=== PATIENT | female | born 1940 | race Caucasian/White ===

== ENCOUNTER 2022-07-30 15:13 | Emergency (ER) | payer MEDICARE, MEDICAID, SELFPAY ==
--- NOTE | ~2022-07-30 | CT_ITS ---
EXAMINATION: CT brain wo con DATE: 07/30/2022 18:17 INDICATION: minor head injury . TECHNIQUE: Computed tomography (CT) of the head was performed without intravenous contrast. The mA wa s adjusted according to patient size. Iterative reconstruction technique was employed. The dose-lengt h product was 1286.33 mGy-cm. COMPARISON: None FINDINGS: Motion limited examination. No acute intracranial hemorrhage or extra-axial fluid collection. No hydrocephalus, mass, or herniation. No acute ischemic infarct. Unremarkable dural venous sinus attenuation. No acute osseous abnormality. Left frontal and midline frontal scalp swelling. The aerated spaces are clear. Severe atrophy. Mild chronic white matter change. Atherosclerotic intracranial calcifications. IMPRESSION: Motion limited examination. Within that constraint, no definite acute intracranial process. Reviewed, dictated and finalized at location K. IMPRESSION: Motion limited examination. Within that constraint, no definite acute intracran ial process.
[2022-07-30 15:34] VITALS: BP 113/88; PULSE 83; RESP 19; O2SAT 100
--- NOTE | 2022-07-30 16:07 | PC.NURSE ---
TO CT scan
[2022-07-30 17:15] VITALS: PULSE 65; RESP 15; O2SAT 100
[2022-07-30] MEDS: LORazepam INJ (*CRX) 2 MG/ML VIAL 0.5 MG IV PUSH (18:10)
[2022-07-30 18:30] VITALS: BP 129/77; RESP 12; O2SAT 98
--- NOTE | 2022-07-30 18:45 | ED.GENADULT ---
HPI - General Adult General Chief complaint: Fall Stated complaint: fall from wheelchair Time Seen by Provider: 07/30/22 15:27 History of Present Illness HPI narrative: Patient is an 81-year-old female who presents ER after a fall from wheelchair. She struck her head on the ground and has a contusion to her left forehead. She is on baby aspirin. Patient has bad dementia and is not cooperative. She will attempt to bite. Related Data Home Medications Medication Instructions Recorded Confirmed Depakote 07/30/22 amlodipine 5 mg tablet mg 07/30/22 aspirin 81 mg tablet mg PO 07/30/22 buspirone 5 mg tablet mg 07/30/22 lisinopril 5 mg tablet mg 07/30/22 metoprolol tartrate 25 mg tablet mg 07/30/22 Allergies Allergy/AdvReac Type Severity Reaction Status Date / Time erythromycin base Allergy Unknown Verified 07/30/22 15:45 febuxostat [From Uloric] Allergy Unknown Verified 07/30/22 15:45 iodine Allergy Unknown Verified 07/30/22 15:45 morphine Allergy Unknown Verified 07/30/22 15:45 prednisone Allergy Unknown Verified 07/30/22 15:45 Review of Systems Review of Systems: ROS unobtainable: Yes unobtainable due to mental status PMFSH Past Medical History Medical History (Updated 07/30/22 @ 18:58 by Oral Vo MD) Dementia Hypertension Surgical History Surgical History (Updated 07/30/22 @ 18:58 by Oral Vo MD) Surgical history unknown Exam Narrative: GENERAL: Chronically ill-appearing, well-nourished, and in no acute distress. HEAD: Normocephalic, contusion left forehead. EYES: PERRL and EOMI. Neck: Supple. CHEST: Clear to auscultation. No respiratory distress. HEART: Regular rate and rhythm. Normal peripheral pulses. EXTREMITIES: Normal range of motion. No edema. SKIN: Warm, dry, no rash. NEURO: Awake and alert, not oriented. Course Course Emergency Course: Updated patient's daughter Cindy regarding results. [place] unlikely any bleeding despite motion limited scan. Patient DNR. Family comfortable with discharge back to facility. Vital Signs Vital signs: Vital Signs Pulse Rate 83 07/30/22 15:34 Respiratory Rate 19 07/30/22 15:34 Blood Pressure 113/88 07/30/22 15:34 Pulse Oximetry 100 07/30/22 15:34 Oxygen Delivery Room Air 07/30/22 15:34 Pulse Rate 65 07/30/22 17:15 Respiratory Rate 12 07/30/22 18:30 Blood Pressure 129/77 07/30/22 18:30 Pulse Oximetry 98 07/30/22 18:30 Oxygen Delivery Room Air 07/30/22 15:34 Medical Decision Making Vital Signs Vital Signs: Vital Signs Pulse Rate 83 07/30/22 15:34 Respiratory Rate 19 07/30/22 15:34 Blood Pressure 113/88 07/30/22 15:34 Pulse Oximetry 100 07/30/22 15:34 Oxygen Delivery Room Air 07/30/22 15:34 Pulse Rate 65 07/30/22 17:15 Respiratory Rate 12 07/30/22 18:30 Blood Pressure 129/77 07/30/22 18:30 Pulse Oximetry 98 07/30/22 18:30 Oxygen Delivery Room Air 07/30/22 15:34 Imaging Data Radiologist's impression: ITS Impressions Head CT 07/30/22 18:22 IMPRESSION: Motion limited examination. Within that constraint, no definite acute intracranial process. Discharge Plan Discharge Clinical Impression: Contusion of forehead Patient Disposition: Home, Self-Care Condition: Stable Instructions: Contusion in Adults (ED) Additional Instructions: Return to the ER if you have fever over 100.4 ?F, you have new confusion or are more somnolent, you have additional fall, you have additional concerns per Prescriptions: No Action buspirone 5 mg tablet amlodipine 5 mg tablet Adult Low Dose Aspirin 81 mg Tablet PO lisinopril 5 mg tablet metoprolol tartrate 25 mg tablet Depakote Follow-up/Referrals: Sly Schmidt MD [Primary Care Provider] - 1 Week
[2022-07-30 19:10] VITALS: BP 129/77; PULSE 70; RESP 14; O2SAT 98
--- NOTE | 2022-07-30 19:15 | PC.NURSE ---
called [facility] to request transport. ETA [id number]
== END 2022-07-30 20:05 ==
PROVIDERS: Emergency Provider Emergency Medicine; PCP Family Medicine
DX: S00.83XA Contusion of other part of head, initial encounter (principal); F03.90 Unspecified dementia, unspecified severity, without behavioral disturbance, psychotic disturbance, mood disturbance, and anxiety; I10 Essential (primary) hypertension; Z66 Do not resuscitate; W05.0XXA Fall from non-moving wheelchair, initial encounter
CPT/HCPCS: 70450; 96374; 99284; J2060

== ENCOUNTER 2022-09-07 09:57 | Emergency (ER) | payer MEDICARE, MEDICAID, SELFPAY ==
--- NOTE | ~2022-09-07 | CT_ITS ---
EXAMINATION: CT brain wo con DATE: 09/07/2022 12:36 INDICATION: Fall with head injury TECHNIQUE: Computed tomography (CT) of the head was performed without intravenous contrast. Sagittal and coronal reconstructions were performed. The mA was adjusted according to patient size. Iterative reconstruction technique was employed. The dose-length product was 605.33 mGy-cm. COMPARISON: head CT dated 07/30/2022 FINDINGS: Right frontal and left parietal scalp hematomas. No fracture. No acute intracranial hemorrhage, acute infarction or abnormal extra axial fluid collection. There is mild scattered white matter hypoattenu ation consistent with chronic small vessel ischemic disease. Unchanged symmetric prominence of the alfaro lci, ventricles and subarachnoid spaces overlying the convexities consistent with moderate to severe age-appropriate diffuse cerebral volume loss. No mass/mass effect. The orbits, paranasal sinuses and mastoid air cells are normal. IMPRESSION: 1. No fracture or acute intracranial process. 2. Age-related changes including moderate to severe diffuse volume loss and mild scattered white isac er hypoattenuation consistent with chronic small vessel ischemic disease. Reviewed, dictated and finalized at location A. IMPRESSION: 1. No fracture or acute intracranial process. 2. Age-related changes including moderate to severe diffuse volume loss and mil d scattered white matter hypoattenuation consistent with chronic small vessel i schemic disease.
--- NOTE | ~2022-09-07 | CT_ITS ---
EXAMINATION: CT cervical spine wo con DATE: 09/07/2022 12:36 INDICATION: Fall with head injury TECHNIQUE: Computed tomography (CT) of the cervical spine was performed without intravenous contrast. Automated exposure control and iterative reconstruction technique were employed. The dose-length pro duct was 104.85 mGy-cm. COMPARISON: None FINDINGS: 2 mm retrolisthesis C3 on C4. 1 mm retrolisthesis C4 on C5 and 1 mm anterolisthesis T1 on T2 and T2 o n T3. Vertebral body heights are normal. No fracture. Severe disc height loss with degenerative endpl ate changes at C2-C3 and C3-C4. Moderate disc height loss at C4-C5, C5-C6, T2-T3 and T3-T4 and mild d isc height loss at T1-T2. Moderate to severe bilateral uncovertebral osteoarthritis and posterior dis c osteophyte complex at C3-C4 resulting in minimal central canal and bilateral neural foraminal steno sis at this level. Multilevel mild to moderate bilateral cervical and moderate to severe upper thorac ic facet osteoarthritis. This contributes to an additional mild neural foraminal stenosis on the left at C5-C6 and C6-C7. Lucent hemangioma with thickened trabecula at the T3 vertebral body. Atheroscler otic calcification is at the bilateral carotid bulbs. Cervical soft tissues are otherwise unremarkabl e. Mild emphysema at the apices of lungs. IMPRESSION: 1. Severe cervical spondylosis. No acute osseous abnormality. 2. Mild emphysema. Reviewed, dictated and finalized at location A.
[2022-09-07 10:01] VITALS: BP 122/87; PULSE 85; RESP 20; TEMP 36.9; O2SAT 98
[2022-09-07 10:15] VITALS: BP 132/61; PULSE 74; RESP 18
[2022-09-07 11:00] VITALS: BP 107/56; PULSE 63; RESP 18
--- NOTE | 2022-09-07 11:50 | PC.NURSE ---
OK BY DR HUA FOR CT'S TO BE ORDERED
--- NOTE | 2022-09-07 12:37 | ED.FALL ---
HPI - Fall General Chief Complaint: Fall Stated Complaint: glf unwitnessed - left sided lac Time Seen by Provider: 09/07/22 12:01 History of Present Illness HPI Narrative: Patient is an 81-year-old female who presents ER after fall. She fell out of her bed and then a lamp fell and struck her in the head as well. She has a laceration to the parietal aspect of her left scalp. Patient is blind/deaf/demented and cannot communicate. Family present. Patient is not on any blood thinners outside of a baby aspirin. She is moving all of her extremities and does not like to be touched. Related Data Home Medications Medication Instructions Recorded Confirmed Depakote 07/30/22 amlodipine 5 mg tablet mg 07/30/22 aspirin 81 mg tablet mg PO 07/30/22 buspirone 5 mg tablet mg 07/30/22 lisinopril 5 mg tablet mg 07/30/22 metoprolol tartrate 25 mg tablet mg 07/30/22 Allergies Allergy/AdvReac Type Severity Reaction Status Date / Time erythromycin base Allergy Unknown Verified 09/07/22 10:07 febuxostat [From Uloric] Allergy Unknown Verified 09/07/22 10:07 iodine Allergy Unknown Verified 09/07/22 10:07 morphine Allergy Unknown Verified 09/07/22 10:07 prednisone Allergy Unknown Verified 09/07/22 10:07 Review of Systems Review of Systems: ROS unobtainable: Yes unobtainable due to medical condition [facility] Past Medical History Medical History (Updated 09/07/22 @ 13:40 by Oral Vo MD) Dementia Hypertension Surgical History Surgical History (Updated 07/30/22 @ 18:58 by Oral Vo MD) Surgical history unknown Exam Narrative: GENERAL: Chronically ill and frail appearing, no acute distress. HEAD: Normocephalic, 2 cm laceration left parietal scalp. Abrasion to the right forehead. ENT: Mucous membranes moist. NECK: Supple. CHEST: Clear to auscultation. No respiratory distress. HEART: Regular rate and rhythm. Normal peripheral pulses. EXTREMITIES: Normal range of motion. No edema. SKIN: Warm, dry, no rash. NEURO: Awake and alert. Not oriented. Course Course Emergency Course: Family informed of results. Discharge home. Wound repaired. Vital Signs Vital signs: Vital Signs Temperature 98.4 F 09/07/22 10:01 Pulse Rate 85 09/07/22 10:01 Respiratory Rate 20 09/07/22 10:01 Blood Pressure 122/87 09/07/22 10:01 Pulse Oximetry 98 09/07/22 10:01 Oxygen Delivery Room Air 09/07/22 10:01 Temperature 98.4 F 09/07/22 10:01 Pulse Rate 63 09/07/22 11:00 Respiratory Rate 18 09/07/22 11:00 Blood Pressure 107/56 L 09/07/22 11:00 Pulse Oximetry 98 09/07/22 10:01 Oxygen Delivery Room Air 09/07/22 10:01 Procedures Laceration Laceration 1: Date: 09/07/22 Time: 13:38 Site: scalp Side (If applicable): left Size (cm): 2 Description: linear Depth: simple, single layer ====== Skin Level ====== Skin layer closed with: amaris Number of sutures: 3 ====== Subcutaneous Layer ====== ====== Muscle Layer ====== ====== Tendon Layer ====== Discharge Plan Discharge Clinical Impression: Laceration of scalp Patient Disposition: Home, Self-Care Condition: Stable Instructions: Laceration (ED), Staple Care (ED) Additional Instructions: Return the ER if you have fever over 100.4 ?F, your wound is red/hot, you it is draining pus, you have additional concerns. Remove your amaris in 5 days. Prescriptions: No Action buspirone 5 mg tablet amlodipine 5 mg tablet Adult Low Dose Aspirin 81 mg Tablet PO lisinopril 5 mg tablet metoprolol tartrate 25 mg tablet Depakote Follow-up/Referrals: Sly Schmidt MD [Primary Care Provider] - 1 Week
[2022-09-07 13:50] VITALS: BP 119/78; PULSE 72; RESP 18; O2SAT 100
== END 2022-09-07 13:52 ==
PROVIDERS: Emergency Provider Emergency Medicine; PCP Family Medicine
DX: S01.01XA Laceration without foreign body of scalp, initial encounter (principal); I10 Essential (primary) hypertension; F03.90 Unspecified dementia, unspecified severity, without behavioral disturbance, psychotic disturbance, mood disturbance, and anxiety; Z79.82 Long term (current) use of aspirin; W06.XXXA Fall from bed, initial encounter; W20.8XXA Other cause of strike by thrown, projected or falling object, initial encounter
CPT/HCPCS: 12001; 70450; 72125; 99284

== ENCOUNTER 2024-04-21 07:42 | Emergency (ER) | payer MEDICARE, MEDICAID, SELFPAY ==
[2024-04-21 07:43] VITALS: BP 124/74; PULSE 78; RESP 18; TEMP 36.7; O2SAT 100
--- NOTE | 2024-04-21 07:52 | ED.EPISTAXIS ---
HPI - Epistaxis General Chief complaint: Epistaxis Stated complaint: epistaxis Time Seen by Provider: 04/21/24 07:46 History of Present Illness HPI Narrative: Patient is an 83-year-old female who presents ER with epistaxis. Sudden onset at her alf. Patient is blind and deaf and cannot provide history. She does not appear to be on any blood thinning medication. There is evidence of bleeding from the right side but it has since stopped. Related Data Home Medications Medication Instructions Recorded Confirmed Depakote 07/30/22 aspirin 81 mg tablet mg PO 07/30/22 buspirone 5 mg tablet mg 07/30/22 lisinopril 5 mg tablet mg 07/30/22 metoprolol tartrate 25 mg tablet mg 07/30/22 Allergies Allergy/AdvReac Type Severity Reaction Status Date / Time erythromycin base Allergy Unknown Verified 04/21/24 07:59 febuxostat [From Uloric] Allergy Unknown Verified 04/21/24 07:59 iodine Allergy Unknown Verified 04/21/24 07:59 morphine Allergy Unknown Verified 04/21/24 07:59 prednisone Allergy Unknown Verified 04/21/24 07:59 Review of Systems Review of Systems: ROS unobtainable: Yes unobtainable due to medical condition PMFSH Past Medical History Medical History (Updated 04/21/24 @ 08:20 by Oral Vo MD) Dementia Hypertension Surgical History Surgical History (Updated 10/11/22 @ 15:09 by Marvin Jarvis) Surgical history unknown Social History Social History (System 10/11/22 @ 15:09 by Marvin Jarvis) Smoking status: Unknown if ever smoked Exam Narrative: GENERAL: Well-appearing, well-nourished, and in no acute distress. HEAD: Normocephalic, atraumatic. ENT: Mucous membranes moist. Stigmata of bleeding from right naris. No active bleeding. NECK: Supple. CHEST: Clear to auscultation. No respiratory distress. HEART: Regular rate and rhythm. Normal peripheral pulses. EXTREMITIES: Normal range of motion. No edema. NEURO: Awake/alert, clear speech. Course Course Emergency Course: No acute intervention needed. Discharge back to alf. Vital Signs Vital signs: Vital Signs Temperature 98.0 F 04/21/24 07:43 Pulse Rate 78 04/21/24 07:43 Respiratory Rate 18 04/21/24 07:43 Blood Pressure 124/74 04/21/24 07:43 Pulse Oximetry 100 04/21/24 07:43 Oxygen Delivery Room Air 04/21/24 07:43 Temperature 98.0 F 04/21/24 07:43 Pulse Rate 78 04/21/24 07:43 Respiratory Rate 18 04/21/24 07:43 Blood Pressure 124/74 04/21/24 07:43 Pulse Oximetry 100 04/21/24 07:43 Oxygen Delivery Room Air 04/21/24 07:43 Discharge Plan Discharge Clinical Impression: Epistaxis Patient Disposition: Home, Self-Care Condition: Stable Instructions: Nosebleed (ED) Additional Instructions: Return to the ER if you have severe uncontrolled bleeding that lasts longer than 20 minutes, you lose consciousness, or you are not able to breathe. After a severe episode of nosebleeding you may have a bowel movement that appears to have blood in it. This is due to the fact that you have swallowed a lot of blood. In order to prevent nosebleeds it is recommended that you use [place] nasal spray to increase moisture in your nose, you apply Vaseline as a barrier cream with a Q-tip, and that you use a humidifier/vaporizer in your bedroom at night. If you have oxymetazoline (Afrin) available, this can be used twice a day for no longer than 3 days. It can help control your bleeding. You may use claritin or zyrtec as nasal decongestants if your have a runny/stuffy nose. Prescriptions: No Action buspirone 5 mg tablet Adult Low Dose Aspirin 81 mg Tablet PO lisinopril 5 mg tablet metoprolol tartrate 25 mg tablet Depakote Follow-up/Referrals: Sly Schmidt MD [Primary Care Provider] -
[2024-04-21 09:07] VITALS: BP 124/70; PULSE 76; RESP 18; TEMP 36.7; O2SAT 98
== END 2024-04-21 09:10 ==
PROVIDERS: Emergency Provider Emergency Medicine; PCP Family Medicine
DX: R04.0 Epistaxis (principal); F03.90 Unspecified dementia, unspecified severity, without behavioral disturbance, psychotic disturbance, mood disturbance, and anxiety; I10 Essential (primary) hypertension; H54.7 Unspecified visual loss; H91.90 Unspecified hearing loss, unspecified ear
CPT/HCPCS: 99281